=== PATIENT | female | born 2000 | race Caucasian/White ===

== ENCOUNTER 2022-08-21 06:00 | Inpatient (IN) | payer OTHER, BC ==
[~2022-08-21] VITALS: Ht 167.6 cm; Wt 121.6 kg
[~2022-08-21 06:00] MED LIST: CYCLOBENZAPRINE5 MG PO; FLUOXETINE HCL10 MG PO; MINOCYCLINE HC100 MG PO; OMEPRAZOLE20 MG PO; VENTOLIN HFA18 GM INH
--- NOTE | 2022-08-21 13:24 | PR ---
[facility] [address] [facility] [place], [place] [address] Signed Progress Notes IP Datetime Report Generated by CPAmauri: 08/21/2022 13:24 PROGRESS NOTES: [id number] Impression: Normal Progression of Labor Procedures: Artificial ROM; Sterile Vag Exam Plan: Continue Present Management VITAL SIGNS: [id number] Vital Signs: Reviewed; Within Normal Limits EXAM: [id number] Dilatation: 2.0 Effacement: 50 Station: -3 Contractions: q 2 to 7 min, irregular MEMBRANES: [id number] Comments: Becoming more uncomfortable. Progressing. Will continue. FETUS A: [id number] FHR Baseline: 120 Variability: Moderate 6-25bpm Accelerations: 15X15 Decelerations: None FHR Category: Category I Presentation: Vertex FETUS B: [id number] Signing Physician: Rosemarie Salcido MD Copies: ~ *Electronically Signed* 08/21/22 1324 ROSEMARIE SALCIDO MD PATIENT NAME: LOBO BRITTON PROGRESS NOTE DATE OF : 99 PHYSICIAN: ROSEMARIE SALCIDO MD RPT #: [id number] REPORT IS CONFIDENTIAL AND NOT TO BE RELEASED WITHOUT AUTHORIZATION
== END 2022-08-24 15:45 | disposition home or self-care (01) | DRG 806 ==
LOC: FBC 06:00
PROVIDERS: ADMIT Obstetrics & Gynecology; ATTEND Obstetrics & Gynecology
PROC: 10E0XZZ Delivery of Products of Conception, External Approach (ICD-10-PCS; principal; 2022-08-22)
PROC: 0KQM0ZZ Repair Perineum Muscle, Open Approach (ICD-10-PCS; 2022-08-22)
PROC: 00HU33Z Insertion of Infusion Device into Spinal Canal, Percutaneous Approach (ICD-10-PCS; 2022-08-22)
PROC: 3E0R3BZ Introduction of Anesthetic Agent into Spinal Canal, Percutaneous Approach (ICD-10-PCS; 2022-08-22)
PROC: 10907ZC Drainage of Amniotic Fluid, Therapeutic from Products of Conception, Via Natural or Artificial Opening (ICD-10-PCS; 2022-08-22)
PROC: 3E0P7VZ Introduction of Hormone into Female Reproductive, Via Natural or Artificial Opening (ICD-10-PCS; 2022-08-22)
DX: O48.0 Post-term pregnancy (principal); D62 Acute posthemorrhagic anemia; Z37.0 Single live birth; Z67.10 Type A blood, Rh positive; O70.1 Second degree perineal laceration during delivery; Z3A.40 40 weeks gestation of pregnancy; O99.214 Obesity complicating childbirth
CPT/HCPCS: 01960; 36415; 85027; 86850; 86900; 86901; A9270; J2590; J2795; J7050; J7121; Q0138

== ENCOUNTER → 2022-10-25 | Emergency (ER) | payer OTHER, BC ==
[~2022-10-25] VITALS: Ht 170.2 cm; Wt 113.4 kg
[~2022-10-25] MED LIST changes: +ARIPIPRAZOLE10 MG PO; +LITHIUM CARBON450 MG PO; +OLANZAPINE10 MG PO; +TRAZODONE HCL100 MG PO
[2022-10-27 12:26] VITALS: BP 109/65
== END ==
LOC: ED 02:11
DX: F29 Unspecified psychosis not due to a substance or known physiological condition (principal); Z20.822 Contact with and (suspected) exposure to COVID-19; Z79.899 Other long term (current) drug therapy
CPT/HCPCS: 36415; 80053; 80178; 81003; 84439; 84443; 84703; 85025; 87502; A9270; A9270-GY; G0480; J2060; J3486; U0003

== ENCOUNTER 2023-12-24 23:26 | Emergency (ER) | payer OTHER, BC ==
[~2023-12-24] VITALS: Ht 170.2 cm; Wt 130.9 kg
[~2023-12-24 23:26] MED LIST changes: +ATIVAN1 MG PO
[2023-12-24] MEDS ORDERED: FAMOTIDINE 20 MG/ 2 ML VIAL IV ONE (23:45)
[2023-12-24] MEDS ORDERED: ondansetron HCL 4 MG/2 ML VIAL IV ONE (23:45)
[2023-12-24 23:52] LABS: BILIRUBIN, URINE NEGATIVE (negative); BLOOD/HGB, URINE NEGATIVE (Negative); KETONE, URINE NEGATIVE (Negative); LEUK ESTERASE, URINE NEGATIVE (negative); NITRITE, URINE NEGATIVE (negative)
[2023-12-24] MEDS ORDERED: DEXTROAMP-AMPHE20 MG PO (23:58)
[2023-12-24] MEDS ORDERED: OMEPRAZOLE40 MG PO (23:58)
[2023-12-24] MEDS ORDERED: WELLBUTRIN SR100 MG PO (23:59)
[2023-12-25 00:01] LABS: BASOPHILS 0.9 % (0-2); EOSINOPHILS 1.6 % (0-6); HEMATOCRIT 37.5 % (35.0-50.0); HEMOGLOBIN 12.1 g/dL (12.0-18.0); LYMPHOCYTES 39.2 % (24-44); MCH 25.7 (27-36); MCHC 32.2 g/dl (30-36); MCV 79.7 fl (81-99); MONOCYTES 6.9 % (0-12); NEUTROPHILS 51.4 % (39-80); PLATELET COUNT 426 K/uL (140-440); RDW 15.1 (10.5-15.0)
[2023-12-25 00:14] LABS: ALBUMIN 3.3 g/dL (3.4-5.0); ALBUMIN/GLOBULIN RATIO 0.7 (1.1-2.4); ANION GAP 13.9 (7-21); BILIRUBIN, TOTAL 0.2 ng/dL (0.2-1.0); BUN/CREATININE RATIO 11.45 (6.0-28.6); CALCIUM 8.8 mg/dL (8.5-10.1); CREATININE, SERUM 0.96 mg/dL (0.55-1.02); POTASSIUM 3.9 mmol/L (3.5-5.1)
[2023-12-25] MEDS ORDERED: KETOROLAC TROMETHAMINE 30 MG/ML VIAL IV ONE (01:15)
[2023-12-25 03:35] VITALS: BP 106/59
== END 2023-12-25 03:35 | disposition home or self-care (01) ==
LOC: ED 23:26
PROVIDERS: Internal Medicine
DX: K21.9 Gastro-esophageal reflux disease without esophagitis (principal); J45.998 Other asthma; F32.A Depression, unspecified; F41.9 Anxiety disorder, unspecified; Z88.8 Allergy status to other drugs, medicaments and biological substances; Z79.899 Other long term (current) drug therapy
CPT/HCPCS: 36415; 74177; 80053; 81003; 83690; 84703; 85025; 96375; 99284-25; J1885; J2405; Q9967

== ENCOUNTER 2024-03-11 14:48 | Emergency (ER) | payer OTHER, BC ==
[~2024-03-11] VITALS: Ht 170.2 cm; Wt 97.8 kg
[~2024-03-11 14:48] MED LIST changes: +DEXTROAMP-AMPHE20 MG PO; +OMEPRAZOLE40 MG PO; +WELLBUTRIN SR100 MG PO
[2024-03-11] MEDS ORDERED: DIPHTH,PERTUSS(ACELL),TET VAC 0.5 ML SYRINGE IM ONE (16:00)
[2024-03-11] MEDS ORDERED: AMOXICILLIN/CLAVULANATE K 875 MG TAB PO ONE (16:00)
[2024-03-11] MEDS ORDERED: AMOX TR-K CLV1 EAC1 PO (16:16)
[2024-03-11 16:34] VITALS: BP 140/79
== END 2024-03-11 16:34 | disposition home or self-care (01) ==
LOC: ED 14:48
DX: S91.052A Open bite, left ankle, initial encounter (principal); W55.01XA Bitten by cat, initial encounter; Z88.8 Allergy status to other drugs, medicaments and biological substances; Z79.899 Other long term (current) drug therapy
CPT/HCPCS: 90471; 90715; 99283-25